=== PATIENT | male | born 1985 | race Caucasian/White ===

== ENCOUNTER 2019-01-18 03:54 | Emergency (ER) | payer MEDICAID, OTHER ==
[~2019-01-18] VITALS: Ht 195.6 cm; Wt 95.5 kg
[2019-01-18 03:55] VITALS: BP 114/44
== END 2019-01-18 04:41 | disposition home or self-care (01) ==
LOC: ER 03:54
DX: S00.83XA Contusion of other part of head, initial encounter (principal); S60.512A Abrasion of left hand, initial encounter; S60.511A Abrasion of right hand, initial encounter; Z88.1 Allergy status to other antibiotic agents; V49.9XXA Car occupant (driver) (passenger) injured in unspecified traffic accident, initial encounter; Y93.89 Activity, other specified; Y92.488 Other paved roadways as the place of occurrence of the external cause; Y99.8 Other external cause status
CPT/HCPCS: 70450; 72125; 99284

== ENCOUNTER 2023-08-28 07:12 | Emergency (ER) | payer MEDICAID ==
[~2023-08-28] VITALS: Ht 198.1 cm; Wt 109.2 kg
[~2023-08-28 07:12] MED LIST: ONDA4TAB12 PO
[2023-08-28 07:13] VITALS: BP 131/80; PULSE 62; RESP 18; TEMP 97.8; O2SAT 98
[2023-08-28] MEDS ORDERED: mupirocin 2% ointment 22GM TP STA (09:01)
== END 2023-08-28 09:24 | disposition home or self-care (01) ==
LOC: ER 07:12
DX: M79.601 Pain in right arm (principal); Z48.02 Encounter for removal of sutures; Z72.89 Other problems related to lifestyle; Z79.899 Other long term (current) drug therapy
CPT/HCPCS: 99281